=== PATIENT | male | born 1980 | race Caucasian/White ===

== ENCOUNTER → 2017-07-10 10:57 | Emergency (ER) | payer SELFPAY ==
[2017-07-10 11:38] VITALS: BMI 20.7
== END | disposition left against medical advice (07) ==
LOC: C.ER 10:57
DX: Z02.89 Encounter for other administrative examinations (principal); F19.10 Other psychoactive substance abuse, uncomplicated

== ENCOUNTER 2017-07-10 11:25 | Emergency (ER) | payer SELFPAY ==
[2017-07-10 11:38] VITALS: BMI 20.7
[2017-07-10 11:40] VITALS: BP 159/95; PULSE 110; RESP 20; TEMP 98.2; O2SAT 98
--- NOTE | 2017-07-10 12:06 | C.PDOC ---
History Of Present Illness 37-YEAR-OLD MALE, PRESENTS TO THE EMERGENCY DEPARTMENT REQUESTING HEROIN DETOX. LAST USE WAS THIS MORNING. NO OTHER ASSOC SX EXAM NAD PSYCH CALM COOPERATIVE NO ACUTE INTOX OR WITHDRAWAL REMAINDE RNEG D/W CRISIS, NO DETOX BEDS AVAILABLE. PRESCREEN INFO GIVEN. Time Seen by Provider: 07/10/17 11:49 Chief Complaint (Nursing): Substance Abuse Past Medical History Vital Signs: Last Vital Signs Temp 98.2 F 07/10/17 11:38 Pulse 110 H 07/10/17 11:38 Resp 20 07/10/17 11:38 BP 159/95 H 07/10/17 11:38 Pulse Ox 98 07/10/17 12:06 - Social History Hx Alcohol Use: No Hx Substance Use: Yes - Immunization History Hx Tetanus Toxoid Vaccination: No Hx Influenza Vaccination: Yes Hx Pneumococcal Vaccination: No Review Of Systems Except As Marked, All Systems Reviewed And Found Negative. Constitutional: Negative for: Fever Cardiovascular: Negative for: Chest Pain Respiratory: Negative for: Shortness of Breath Gastrointestinal: Negative for: Vomiting Neurological: Negative for: Numbness Psych: Negative for: Suicidal ideation, Withdrawal Physical Exam - Physical Exam Appears: Non-toxic, No Acute Distress, Other (PSYCH CALM COOPERATIVE NO ACUTE INTOX OR WITHDRAWAL) Skin: Warm, Dry, No Diaphoretic, No Rash, No Jaundice Head: Normacephalic Eye(s): bilateral: PERRL Nose: No Flaring, No Discharge Neck: Normal ROM, Supple Cardiovascular: Rhythm Regular, No Murmur Respiratory: Normal Breath Sounds, No Accessory Muscle Use Gastrointestinal/Abdominal: Soft, No Tenderness Extremity: Normal ROM, Capillary Refill (<2 seconds), No Deformity, No Swelling Neurological/Psych: Oriented x3, Normal Speech ED Course And Treatment O2 Sat by Pulse Oximetry: 98 Medical Decision Making Medical Decision Making: D/W CRISIS, NO DETOX BEDS AVAILABLE. PRESCREEN INFO GIVEN. Disposition Counseled Patient/Family Regarding: Diagnosis, Need For Followup - Disposition Referrals: DETOX,ANIVAL [Other] Disposition: HOME/ ROUTINE Disposition Time: 12:06 Condition: GOOD Instructions: Opioid Use Disorder Forms: [facility] (Malay) - Clinical Impression Clinical Impression: Narcotic abuse - Scribe Statement The provider has reviewed the documentation as recorded by the Scribe (Shweta Powell) All medical record entries made by the Scribe were at my direction and personally dictated by me. I have reviewed the chart and agree that the record accurately reflects my personal performance of the history, physical exam, medical decision making, and the department course for this patient. I have also personally directed, reviewed, and agree with the discharge instructions and disposition.
== END 2017-07-10 12:25 | disposition home or self-care (01) ==
LOC: C.ER 11:25
DX: F19.10 Other psychoactive substance abuse, uncomplicated (principal)

== ENCOUNTER → 2017-08-14 12:39 | Emergency (ER) | payer SELFPAY ==
[2017-08-14 12:39] VITALS: BMI 20.7
== END | disposition left against medical advice (07) ==
LOC: C.ER 12:39
DX: Z02.89 Encounter for other administrative examinations (principal); F19.10 Other psychoactive substance abuse, uncomplicated